=== PATIENT | female | born 1990 | race American Indian/Alaskan Native ===

== ENCOUNTER 2019-07-17 21:40 | Emergency (ER) | payer MEDICAID ==
[2019-07-17] MEDS ORDERED: dexAMETHasone 4 MG/ML VIAL IV ONE (21:56)
[2019-07-17] MEDS ORDERED: diphenhydrAMINE 50 MG/ML VIAL IV ONE (21:56)
[2019-07-17] MEDS ORDERED: SODIUM CHLORIDE 0.9% 1000 ML 1,000 ML IV ONE (21:56)
[2019-07-17] MEDS ORDERED: METOCLOPRAMIDE 10 MG/2 ML INJ IV ONE (21:56)
--- NOTE | 2019-07-17 21:59 | Event Note ---
ED Screening Note Date of service: 07/17/19 Time: 21:57 ED Screening Note: 28 y.o. F. that presents to the ER with migraine headache. PMH of migraines and anxiety. Patient states she woke up with symptoms. Headache is constant throbbing pressure. This initial assessment/diagnostic orders/clinical plan/treatment(s) is/are subject to change based on patients health status, clinical progression and re- assessment by fellow clinical providers in the ED. Further treatment and workup at subsequent clinical providers discretion. Patient/guardian urged not to elope from the ED as their condition may be serious if not clinically assessed and managed. Initial orders include: Meds ACC for further treatment.
[2019-07-17 23:19] LABS: Basophils % (Auto) 0.5 % (0.0-1.8); Eosinophils # (Auto) 0.1 K/mm3 (0.0-0.4); Eosinophils % (Auto) 1.6 % (0.0-4.3); Hematocrit 38.4 % (30.3-42.9); Hemoglobin 12.4 gm/dl (10.1-14.3); Lymphocytes # (Auto) 3.2 K/mm3 (1.2-5.4); Lymphocytes % (Auto) 40.8 % (13.4-35.0); Mean Corpuscular HGB Conc 32 % (30-34); Mean Corpuscular Volume 84 fl (79-97); Monocytes # (Auto) 0.9 K/mm3 (0.0-0.8); Monocytes % (Auto) 11.1 % (0.0-7.3); Platelet Count 265 K/mm3 (140-440); Red Blood Count 4.58 M/mm3 (3.65-5.03); Red Cell Distribution Width 15.2 % (13.2-15.2)
[2019-07-17 23:41] LABS: Alanine Aminotransferase 8 units/L (7-56); Albumin 4.3 g/dL (3.9-5); BUN/Creatinine Ratio 16; Blood Urea Nitrogen 11 mg/dL (7-17); Calcium 9.3 mg/dL (8.4-10.2); Hemolysis Index 7
--- NOTE | 2019-07-18 00:11 | Cat Scan Report ---
CT head/brain wo con INDICATION / CLINICAL INFORMATION: MAIN: headache, AMS. TECHNIQUE: Axial CT imaging of brain was obtained without contrast. Coronal and sagittal reformatted imaging obt ained and reviewed. All CT scans at this location are performed using CT dose reduction for ALARA by means of automated exposure control. COMPARISON: None available. FINDINGS: No intracranial hemorrhage, mass, or midline shift noted. No extra-axial fluid collection or suggesti on of acute territorial infarct. Ventricular system and basilar cisterns are unremarkable. Visualized paranasal sinuses and mastoid air cells are well aerated and grossly clear. No calvarial a bnormality. IMPRESSION: 1. Negative noncontrasted head CT scan. Signer Name: Renetta Freeman MD Signed: 07/18/2019 12:07 AM Workstation Name: [id number]
[2019-07-18 01:15] LABS: Bacteria,Urine 1+ /HPF (Negative); Bilirubin,Urine NEG (Negative); Blood,Urine MOD (Negative); Color,Urine Colorless (Yellow); Protein,Urine <15 mg/dL mg/dL (Negative); Urobilinogen,Urine < 2.0 mg/dL (<2.0); WBC,Urine < 1.0 /HPF (0.0-6.0)
[2019-07-18 01:16] LABS: Amphetamine Screen,Urine PRESUMPTIVE NEGATIVE; Benzodiazepines Screen,Urine PRESUMPTIVE NEGATIVE; Cannabinoid Screen,Urine PRESUMPTIVE NEGATIVE; Cocaine Screen,Urine PRESUMPTIVE NEGATIVE; Methadone Screen,Urine PRESUMPTIVE NEGATIVE; Opiate Screen,Urine PRESUMPTIVE NEGATIVE
--- NOTE | 2019-07-18 01:36 | Emergency Department Report ---
ED Headache HPI - General Chief Complaint: Headache Stated Complaint: HEADACHE,ANXIETY Time Seen by Provider: 07/17/19 21:56 Source: patient, family Exam Limitations: no limitations - History of Present Illness Initial Comments: Patient is a 28-year-old -[place] female with a history of chronic migraine headaches who presents to the ED with complaint of acute onset pers istent diffuse severe headache with nausea and vomiting for the last 3 hours. Patient states that she has been feeling generally weak since the onset of the symptoms. Patient states that she usually takes Excedrin Migraine headache medications at home and which usually helps resolve the headache but that she has not taken any of these medications in the last 12 hours. Patient denies chest pain, fever, chills, vision changes, dizziness, fever, chills, cough, shortness of breath, dysuria, urinary frequency and urgency, sore throat, nasal and sinus congestion or abdominal pain. Timing/Duration: 1-3 hours Quality: severe Head Injury Location: global Recent Head Trauma: no recent headache/trauma Modifying Factors: improves with: medication Associated Symptoms: denies symptoms, nausea/vomiting. denies: confusion, fatigue, facial pain, fever/chills, flushing, loss of consciousness, nasal congestion, nasal drainage, numbness in legs/feet, seizures, sinus infection, stiff neck, vision changes, weakness Allergies/Adverse Reactions: Allergies No Known Allergies Allergy (Unverified 07/17/19 21:58) Home Medications: Ambulatory Orders Butalb/Acetamin/Caff 50-325-40 [Fioricet 50-325-40] 1 tab PO Q6HR PRN #15 tab 07/18/19 Ketorolac [Toradol] 10 mg PO Q8H PRN #20 tablet 07/18/19 Promethazine [Phenergan] 25 mg PO Q6HR PRN #24 tab 07/18/19 hydrOXYzine PAMOATE [Vistaril] 25 mg PO Q6HR PRN #30 capsule 07/18/19 ED Review of Systems ROS: Stated complaint: HEADACHE,ANXIETY Other details as noted in HPI Constitutional: denies: chills, fever Eyes: denies: eye pain, eye discharge, vision change ENT: denies: ear pain, throat pain Respiratory: denies: cough, shortness of breath, wheezing Cardiovascular: denies: chest pain, palpitations Endocrine: no symptoms reported Gastrointestinal: nausea, vomiting. denies: abdominal pain, diarrhea Genitourinary: denies: urgency, dysuria, discharge Musculoskeletal: denies: back pain, joint swelling, arthralgia Skin: denies: rash, lesions Neurological: headache. denies: weakness, paresthesias Psychiatric: anxiety. denies: depression Hematological/Lymphatic: denies: easy bleeding, easy bruising ED Past Medical Hx - Past Medical History Previous Medical History?: Yes Hx Headaches / Migraines: Yes Hx Psychiatric Treatment: Yes (Anxiety) - Surgical History Past Surgical History?: No - Social History Smoking Status: Never Smoker Substance Use Type: None - Medications Home Medications: Home Medications Medication Instructions Recorded Confirmed Last Taken Type Butalb/Acetamin/Caff 50-325-40 1 tab PO Q6HR PRN #15 tab 07/18/19 Unknown Rx [Fioricet 50-325-40] Ketorolac [Toradol] 10 mg PO Q8H PRN #20 tablet 07/18/19 Unknown Rx Promethazine [Phenergan] 25 mg PO Q6HR PRN #24 tab 07/18/19 Unknown Rx hydrOXYzine PAMOATE [Vistaril] 25 mg PO Q6HR PRN #30 capsule 07/18/19 Unknown Rx ED Physical Exam - General Limitations: No Limitations General appearance: alert, in no apparent distress - Head Head exam: Present: atraumatic, normocephalic, normal inspection - Eye Eye exam: Present: normal appearance, PERRL, EOMI Pupils: Present: normal accommodation - ENT ENT exam: Present: normal exam, normal orophraynx, mucous membranes moist, TM's normal bilaterally, normal external ear exam - Neck Neck exam: Present: normal inspection, full ROM. Absent: tenderness - Respiratory Respiratory exam: Present: normal lung sounds bilaterally. Absent: respiratory distress, wheezes, rales, rhonchi, chest wall tenderness, accessory muscle use, decreased breath sounds - Cardiovascular Cardiovascular Exam: Present: normal rhythm, tachycardia. Absent: normal heart sounds, systolic murmur, diastolic murmur, rubs, gallop - GI/Abdominal GI/Abdominal exam: Present: soft, normal bowel sounds. Absent: tenderness, guarding, rebound, hyperactive bowel sounds, organomegaly - Extremities Exam Extremities exam: Present: normal inspection, full ROM, normal capillary refill - Back Exam Back exam: Present: normal inspection, full ROM. Absent: tenderness, CVA tenderness (R), CVA tenderness (L), muscle spasm, paraspinal tenderness, vertebral tenderness - Neurological Exam Neurological exam: Present: alert, oriented X3, CN II-XII intact, normal gait, reflexes normal - Psychiatric Psychiatric exam: Present: normal affect, normal mood - Skin Skin exam: Present: warm, dry, intact, normal color. Absent: rash ED Course Vital Signs 07/17/19 21:44 Temperature 98.9 F Pulse Rate 105 H Respiratory 18 Rate Blood Pressure 147/60 O2 Sat by Pulse 100 Oximetry ED Medical Decision Making - Lab Data Result diagrams: 07/17/19 22:59 07/17/19 22:59 - Radiology Data Radiology results: report reviewed, image reviewed Findings [place] [id number] Cat Scan Report Signed Patient: TAMMIE LUNDBERG MR#: [id number] : 1990 Acct:[id number] Age/Sex: 28 / F ADM Date: 07/17/19 Loc: ED Attending Dr: Ordering Physician: SHER ESPINOZA Date of Service: 07/17/19 Procedure(s): CT head/brain wo con Accession Number(s): [id number] cc: SHER ESPINOZA CT head/brain wo con INDICATION / CLINICAL INFORMATION: MAIN: headache, AMS. TECHNIQUE: Axial CT imaging of brain was obtained without contrast. Coronal and sagittal reformatted imaging obtained and reviewed. All CT scans at this location are performed using CT dose reduction for ALARA by means of automated exposure control. COMPARISON: None available. FINDINGS: No intracranial hemorrhage, mass, or midline shift noted. No extra-axial fluid collection or suggestion of acute territorial infarct. Ventricular system and basilar cisterns are unremarkable. Visualized paranasal sinuses and mastoid air cells are well aerated and grossly clear. No calvarial abnormality. IMPRESSION: 1. Negative noncontrasted head CT scan. Signer Name: Renetta Freeman MD Signed: 07/18/2019 12:07 AM Workstation Name: [id number] Transcribed By: JR Dictated By: Renetta Freeman MD Electronically Authenticated By: Renetta Freeman MD Signed Date/Time: 07/18/19 0007 DD/ 0005 TD/TT: - Medical Decision Making This is a 28-year-old female with a history of chronic migraine headaches who presented to the ED with acute exacerbation of her chronic migraine headaches for 3 hours with nausea and vomiting. In the ED, patient is alert and oriented x3 and is not in distress but tachycardic in triage. Patient was treated for headache and lab test results were reviewed and are all nonactionable including urinalysis. Head CT scan without contrast shows no acute intracranial abnormalities or hemorrhage. On reevaluation, patient's headache resolved as well as nausea and vomiting. Patient carrying out normal conversation with the family that included her and her mother. Patient was discharged home on medications and advised to follow-up with her primary care physician in 5 to 7 days for reevaluation or return to the ED immediately if symptoms get worse. - Differential Diagnosis migraine headache; anxiety; panic attack; dehydration; drug abuse Critical care attestation.: If time is entered above; I have spent that time in minutes in the direct care of this critically ill patient, excluding procedure time. ED Disposition Clinical Impression: Anxiety as acute reaction to exceptional stress, Nausea and vomiting in adult Migraine headache with aura Qualifiers: Status migrainosus presence: with status migrainosus Intractability: not intractable Qualified Code(s): G43.101 - Migraine with aura, not intractable, with status migrainosus Disposition: DC-01 TO HOME OR SELFCARE Is pt being admited?: No Does the pt Need Aspirin: No Condition: Stable Instructions: Migraine Headache (ED), Generalized Anxiety Disorder (ED) Additional Instructions: All lab test results and imaging tests are unremarkable. Take medication with food, drink plenty fluids and follow-up with your primary care physician in 5 to 7 days for reevaluation. Return to the ED immediately if symptoms get worse. Prescriptions: Butalb/Acetamin/Caff 50-325-40 [Fioricet 50-325-40] 1 tab PO Q6HR PRN #15 tab PRN Reason: Headache Promethazine [Phenergan] 25 mg PO Q6HR PRN #24 tab PRN Reason: Nausea Ketorolac [Toradol] 10 mg PO Q8H PRN #20 tablet PRN Reason: Pain hydrOXYzine PAMOATE [Vistaril] 25 mg PO Q6HR PRN #30 capsule PRN Reason: Anxiety Referrals: ONEAL CAMPOS MD [Staff Physician] - 7-10 days Time of Disposition: 01:34 Print Language: CZECH
[2019-07-18 01:53] VITALS: BP 107/65
== END 2019-07-18 01:55 | disposition home or self-care (01) ==
LOC: ED 21:40
DX: G43.101 Migraine with aura, not intractable, with status migrainosus (principal); F41.9 Anxiety disorder, unspecified; R11.2 Nausea with vomiting, unspecified; Z79.899 Other long term (current) drug therapy
CPT/HCPCS: 36415; 70450; 80053; 80307; 81001; 85025; 96374; 96375; 99284; J1100; J1200; J2765; J7030